=== PATIENT | male | born 1960 | race Caucasian/White ===

== ENCOUNTER → 2016-12-04 | Outpatient (CLI) | payer BC ==
[~2016-12-04] MED LIST: CONRAY-43 43% 50ML VIAL (Q9960) As Ordered ONE
--- NOTE | 2016-12-04 09:55 | REP ---
MR ARTHROGRAM RIGHT WRIST: TECHNIQUE: T2 fat sat right wrist in all three planes, coronal T1, post arthrogram T1 fat sat images in all three planes. The triangular fibrocartilage complex is intact. The scapholunate and lunatotriquetral ligaments are intact. There is no extension of injected contrast into the distal radioulnar joint or into the intercarpal joints. Flexor and extensor tendons appear intact without significant tenosynovitis. Carpal tunnel region demonstrates no significant abnormality. Lobulated oval ganglion cyst is seen at the anterior margin of the distal end of the radius deep to the adjacent flexor tendons. The cyst measures approximately 2.2 x 1.2 x 2.6 cm. No other cyst or fluid collection is seen. There is no joint effusion. There is minimal marrow edema in the scaphoid bone which is of doubtful significance, possibly related to some arthritic change at the radiocarpal joint. There is no occult fracture. IMPRESSION: Lobulated ganglion cyst at the anterior margin of the distal end of the radius as discussed above. No evidence of tendon or ligament tear. Signed by George Hedrick MD 12/04/2016 04:37 P
--- NOTE | 2016-12-04 18:00 | REP ---
RIGHT WRIST ARTHROGRAM: The procedure was performed under the direct supervision of Dr. Hedrick. The images were reviewed with Dr. Hedrick. The benefits and risks including but not limited to pain, infection, bleeding and anaphylaxis were explained to the patient and informed consent was obtained The right radioscaphoid joint space was localized using ultrasound guidance. The skin was prepped and draped in a sterile fashion. 1% lidocaine was used a local anesthetic. Using fluoroscopic guidance a 25 gauge needle was inserted and then advanced into the joint. 3 mL of a solution containing 5 mL of Conray 43-and 5 mL of a solution containing 20 mL of sterile saline and 0.15 mL of ProHance was injected into the joint. Images obtained during injection show filling of the radiocarpal row. The scapholunate and lunatotriquetral ligaments appear intact. The triangular fibrocartilage complex appears intact. There is no contrast seen extending in the distal radial ulnar joint. The needle was removed and the patient was taken to MRI for post procedural imaging. 24 seconds of fluoroscopic time was utilized for this procedure. Reviewed by TANYA Adams 12/07/2016 08:19 AEdited and Signed by George Hedrick MD 12/07/2016 05:37 P
== END ==
LOC: M RADPRO 07:09
PROVIDERS: ATTEND Orthopaedic Surgery
DX: M67.431 Ganglion, right wrist (principal)
CPT/HCPCS: 25246; 73223; 77002; A9576; Q9960

== ENCOUNTER 2017-06-28 12:26 | Day surgery (SDC) | payer BC ==
[~2017-06-28] VITALS: Ht 188 cm; Wt 99.3 kg
[~2017-06-28 12:26] MED LIST changes: +ANUS2.5C2 PR; -CONRAY-43 43% 50ML VIAL (Q9960) As Ordered ONE; +NABU500T PO; +NEXI40CA PO; +NS 1,000 ML IV ONE; +TYLE650T35 PO
[2017-06-28] MEDS ORDERED: PROPOFOL 200 MG/20 ML VIAL As Ordered ONE (14:38)
[2017-06-28] MEDS ORDERED: LIDOCAINE 2% INJ 100 MG/5 ML SDV (FOR ANES.) As Ordered ONE (14:38)
--- NOTE | 2017-06-28 14:54 | ROOR ---
Patient Name: Krunal Kumar Procedure Date: 06/28/2017 2:30 PM Date of : 1960 Age: 57 Room: [facility] Gender: Male Note Status: Finalized Procedure: Total Colonoscopy to Cecum + Cold Snare Polypectomy + Hemoclip Indications: High risk colon cancer surveillance: Personal history of colonic polyps, Last colonoscopy: 2014 Providers: Arslan Wall MD Referring MD: REVA TUBBS MD Requesting Provider: Medicines: Monitored Anesthesia Care Complications: No immediate complications. Procedure: Pre-Anesthesia Assessment: - The heart rate, respiratory rate, oxygen saturations, blood pressure, adequacy of pulmonary ventilation, and response to care were monitored throughout the procedure. The Colonoscope was introduced through the anus and advanced to the cecum, identified by appendiceal orifice and ileocecal valve. The colonoscopy was performed without difficulty. The patient tolerated the procedure well. The quality of the bowel preparation was excellent. Findings: The perianal and digital rectal examinations were normal. Non-bleeding internal hemorrhoids were found during retroflexion. The hemorrhoids were small and Grade I (internal hemorrhoids that do not prolapse). Scattered small-mouthed diverticula were found in the recto-sigmoid colon, sigmoid colon and descending colon. A medium polyp was found at 60 cm proximal to the anus. The polyp was sessile. The polyp was removed with a cold snare. Resection and retrieval were complete. To prevent bleeding after the polypectomy, one hemostatic clip was successfully placed (MR conditional). There was no bleeding at the end of the procedure. The exam was otherwise without abnormality on direct and retroflexion views. Impression: - Non-bleeding internal hemorrhoids. - Diverticulosis in the recto-sigmoid colon, in the sigmoid colon and in the descending colon. - One medium polyp at 60 cm proximal to the anus, removed with a cold snare. Resected and retrieved. Clip (MR conditional) was placed. - The examination was otherwise normal on direct and retroflexion views. - The exam was otherwise normal to the cecum. Recommendation: - Patient has a contact number available for emergencies. The signs and symptoms of potential delayed complications were discussed with the patient. Return to normal activities tomorrow. Written discharge instructions were provided to the patient. - High fiber diet. - Discharge patient to home. - Continue present medications. - Await pathology results. - Telephone GI clinic for pathology results in 1 week. - Repeat colonoscopy for surveillance based on pathology results. - Return to referring physician. - The findings and recommendations were discussed with the patient's family. Arslan Wall MD Arslan Wall MD 06/28/2017 2:53:52 PM This report has been signed electronically. Number of Addenda: 0 Note Initiated On: 06/28/2017 2:30 PM Estimated Blood Loss: Estimated blood loss: none.
[2017-06-28 15:23] VITALS: BP 123/87
== END 2017-06-28 15:00 | disposition home or self-care (01) ==
LOC: M OPP 12:26
PROVIDERS: ATTEND Internal Medicine Gastroenterology
DX: K62.5 Hemorrhage of anus and rectum (principal); Z86.010 Personal history of colon polyps; D12.4 Benign neoplasm of descending colon; K64.0 First degree hemorrhoids; K57.30 Diverticulosis of large intestine without perforation or abscess without bleeding; K25.9 Gastric ulcer, unspecified as acute or chronic, without hemorrhage or perforation; K92.2 Gastrointestinal hemorrhage, unspecified; K44.9 Diaphragmatic hernia without obstruction or gangrene; R12 Heartburn; K21.9 Gastro-esophageal reflux disease without esophagitis; K22.70 Barrett's esophagus without dysplasia; R06.83 Snoring; F17.210 Nicotine dependence, cigarettes, uncomplicated; Z79.899 Other long term (current) drug therapy

== ENCOUNTER → 2024-11-29 | Outpatient (CLI) | payer BC ==
[~2024-11-29] MED LIST changes: +ACET650T61 PO; +NABU-71 PO; -NABU500T PO; -NS 1,000 ML IV ONE; -TYLE650T35 PO
== END ==
LOC: M RAD 15:09
PROVIDERS: ATTEND Orthopaedic Surgery
DX: M75.42 Impingement syndrome of left shoulder (principal); S46.012A Strain of muscle(s) and tendon(s) of the rotator cuff of left shoulder, initial encounter; M75.02 Adhesive capsulitis of left shoulder

== ENCOUNTER 2025-06-21 07:31 | Day surgery (SDC) | payer BC ==
[~2025-06-21] VITALS: Ht 188 cm; Wt 102.6 kg
[~2025-06-21 07:31] MED LIST changes: +AMIO200T55 PO; +HYDR25TA87 PO; +NORV5TAB PO; +ZOLP12.561 PO
[2025-06-21] MEDS ORDERED: MIDAZOLAM INJ 2 MG/2 ML VIAL As Ordered ONE (07:59)
[2025-06-21] MEDS ORDERED: LIDOCAINE 2% 100 MG/5 ML SDV (FOR ANES.) As Ordered ONE (08:00)
[2025-06-21] MEDS ORDERED: SUGAMMADEX SODIUM 500 MG/5 ML VIAL As Ordered ONE (08:00)
[2025-06-21] MEDS ORDERED: dexmedeTOMIDine (4 MCG/ML) 200 MCG/50 ML BTL As Ordered ONE (08:00)
[2025-06-21] MEDS ORDERED: ROCURONIUM BROMIDE 50MG/5ML VIAL As Ordered ONE (08:00)
[2025-06-21] MEDS ORDERED: ONDANSETRON 4MG/2ML VIAL As Ordered ONE (08:01)
[2025-06-21] MEDS ORDERED: KETOROLAC 30 MG/ML 1 ML VIAL As Ordered ONE (08:01)
[2025-06-21] MEDS ORDERED: dexAMETHasone 4 MG/ML 1 ML VIAL As Ordered ONE (08:01)
[2025-06-21] MEDS: ceFAZolin SOD 2 GM IV ONCE IV ONE (09:04)
[2025-06-21] MEDS ORDERED: ACETAMINOPHEN 1000MG/100ML IV BAG As Ordered ONE (09:05)
[2025-06-21] MEDS ORDERED: HYDROMORPHONE HCL 0.5 MG/0.5 ML SYRINGE IV PRN (10:15)
[2025-06-21] MEDS ORDERED: ONDANSETRON 4MG/2ML VIAL IV PRN (10:15)
[2025-06-21 11:10] VITALS: BP 136/61; TEMP 97; O2SAT 97
== END 2025-06-21 11:45 | disposition home or self-care (01) ==
LOC: M SDC 07:31
PROVIDERS: ATTEND Surgery
DX: K40.31 Unilateral inguinal hernia, with obstruction, without gangrene, recurrent (principal); I10 Essential (primary) hypertension; E78.00 Pure hypercholesterolemia, unspecified; Z79.899 Other long term (current) drug therapy; Z79.82 Long term (current) use of aspirin; K21.9 Gastro-esophageal reflux disease without esophagitis; F17.210 Nicotine dependence, cigarettes, uncomplicated
CPT/HCPCS: 49651; C1781; J0131; J0665; J0688; J1100; J1885; J2250; J2405; J2765; J3010; S2900